=== PATIENT | female | born 1965 | race Caucasian/White ===

== ENCOUNTER → 2018-02-21 16:59 | Outpatient (CLI) | payer OTHER, SELFPAY ==
[2018-02-21 19:06] LABS: Free T4, Direct Thyroxine 1.45 ng/dL (0.78-2.19)
[2018-02-21 19:19] LABS: Thyroid Stimulating Hormone < 0.02 uIU/mL (0.47-4.68)
== END ==
PROVIDERS: PCP Family Medicine; Visit Provider Family Medicine
DX: E03.9 Hypothyroidism, unspecified (principal)
CPT/HCPCS: 36415; 84439; 84443

== ENCOUNTER 2018-03-14 13:51 | Day surgery (SDC) | payer OTHER, SELFPAY ==
[2018-03-14] VITALS (8 sets, daily range): BP systolic 102–119; BP diastolic 62–70; PULSE 55–73; RESP 13–16; TEMP 36–36.6; O2SAT 97–100; BMI 22.7
[2018-03-14] MEDS: SODIUM CHLORIDE 0.9% 1,000 ML 200 ML IV (14:28)
[2018-03-14] MEDS: MIDAZOLAM 5 MG/5 ML VIAL IV (14:58)
[2018-03-14] MEDS: fentaNYL 250 MCG/5 ML INJ IV (14:58)
--- NOTE | 2018-03-14 15:08 | PM.HP.1 ---
History of Present Illness Date Patient Seen: 03/14/18 Time Patient Seen: 15:08 Chief complaint: colonoscopy 81210 Narrative: Pleasant and healthy 53-year-old lady who presents for her 1st screening colonoscopy. She denies any problems related to the function of her GI tract. She reports she needs colonoscopy as per the bowel maintenance program. Patient History Medical History Varicose veins of both legs with edema (Chronic) Hypothyroidism (02/16/17) Anemia (Chronic ~1990) Anxiety (Chronic) Blood loss (Chronic) Bulging discs (Chronic) Headache (Chronic ~1983) Heavy menstrual period (Chronic ~1999) Irregular menstrual cycle (Chronic ~2017) Migraines (Chronic ~1983) Chicken pox (Resolved) Finger fracture (Resolved) Mumps (Resolved) Surgical History History of breast biopsy (Resolved) History of cryosurgery (Resolved) Family & Social History Family History: Reviewed 03/14/18 by Rebekah Iniguez MD Social History: household members spouse Tobacco & Substance use: Smoking Status Never smoker alcohol intake current Meds Home Medications Medication Instructions Recorded Confirmed Type levothyroxine 50 mcg PO DAILY 03/14/18 03/14/18 History Allergies Allergy/AdvReac Type Severity Reaction Status Date / Time codeine Allergy Mild CHILDHOOD Verified 03/14/18 14:07 Penicillins Allergy Mild CHILDHOOD Verified 03/14/18 14:07 Review of Systems Review of Systems All systems reviewed & are unremarkable except as noted in HPI and below Exam Vital Signs (past 8 hours): - 03/14/18 14:18 Temperature 97.9 F Pulse Rate 73 Respiratory Rate 16 Blood Pressure 119/70 Pulse Oximetry 100 Oxygen Delivery Method Room Air Narrative Exam Narrative: Pleasant well-nourished well-developed lady in no distress HEENT: Normocephalic and atraumatic, pupils equal round reactive to light accommodation with anicteric sclera Lungs: Clear to auscultation bilaterally Heart: Regular rate and rhythm Abdomen: Soft, nontender, active bowel sounds Extremities: Warm and well perfused Assessment & Plan Plan: Assessment/Plan Narrative: Very pleasant 53-year-old lady with her for screening colonoscopy. We discussed risks benefits the patient expressed a desire to have the procedure.
--- NOTE | 2018-03-14 15:39 | PM.OP.1 ---
Operative Date/Time/Diagnoses Date of procedure: 03/14/18 Time of procedure: 15:39 Pre-op diagnosis: Screening Post-op diagnosis: same Procedure & Clinicians Procedure: Screening Same procedure as scheduled: Yes Indications: No prior colonoscopy Surgeon: Rebekah Iniguez Click Yes if Unassisted: Yes Anesthesia Type: Sedation (Versed 8 mg; fentanyl 200 mcg) Operative Notes Findings: 1. Excellent prep 2. No polyps or mass lesions 3. No AV malformations 4. Very very mild diverticulosis limited to the sigmoid region 5. Grade 1 internal hemorrhoids 6. Essentially normal colonoscopy for age Procedure in detail: After obtaining informed consent, the patient was brought to the GI suite and placed in the left lateral decubitus position on the examination table. After placement of appropriate monitors, the patient was given incremental doses of Versed and Fentanyl until an appropriate level of sedation was achieved. A time out was held per SCOAP protocol. A digital rectal examination was performed and did not reveal any masses or obstructing lesions. The colonoscope was gently passed into the patient's anus and the entire colon navigated to the level of the cecum with minimal difficulty. Once in the cecum, the scope was withdrawn being sure to go before and beyond all mucosal folds and prominences and get an excellent examination. The findings are noted above. At the level of the rectal vault, the scope was retroflexed and the internal anal canal was examined. The scope was straightened and air aspirated from the colon. The instrument was removed from the patient's body and the procedure was concluded. The patient was allowed to awaken from sedation without difficulty and taken to the post-anesthesia care unit in good condition. Total sedation time 21 min Total withdrawal time 9 min
== END 2018-03-14 16:40 | disposition home or self-care (01) ==
PROVIDERS: PCP Family Medicine; Visit Provider Surgery
PROC: 0DJD8ZZ Inspection of Lower Intestinal Tract, Via Natural or Artificial Opening Endoscopic (ICD-10-PCS; CPT 45378; principal; 2018-03-14 15:00)
DX: Z12.11 Encounter for screening for malignant neoplasm of colon (principal); K57.30 Diverticulosis of large intestine without perforation or abscess without bleeding; K64.0 First degree hemorrhoids
CPT/HCPCS: 45378; 99152; J2250; J3010

== ENCOUNTER → 2018-04-05 16:47 | Outpatient (CLI) | payer OTHER, SELFPAY ==
[2018-04-05 18:50] LABS: TSH w/ Reflex to FT4 0.06 uIU/mL (0.47-4.68)
[2018-04-05 19:16] LABS: Free T4, Direct Thyroxine 1.05 ng/dL (0.78-2.19)
== END ==
PROVIDERS: PCP Family Medicine; Visit Provider Family Medicine
DX: E03.9 Hypothyroidism, unspecified (principal)
CPT/HCPCS: 36415; 84439; 84443

== ENCOUNTER → 2018-04-15 08:01 | Outpatient (CLI) | payer OTHER, SELFPAY ==
[2018-04-15 08:27] LABS: Bacteria Urine None Seen; RBC Urine None Seen (0-5/HPF); WBC Urine None Seen (0-5/HPF)
[2018-04-15 09:12] LABS: Add Manual Diff / Slide Review NO; Basophils Percent Auto 0.9 % (0-2); Hematocrit 33.6 % (36-46); Hemoglobin 10.5 g/dL (12.0-16.0); Lymphocytes Percent Auto 24.4 % (25-40); Mean Corpuscular HGB Conc 31.3 % (30-36); Mean Corpuscular Hemoglobin 23.6 PG (26-34); Mean Corpuscular Volume 75.3 fL (80-100); Monocytes Percent Auto 7.1 % (3-14); Neutrophils Absolute Auto 3800 /uL (3000-5900); Neutrophils Percent Auto 64.6 % (50-75); Platelet Count 349 X10^3/uL (150-400); Red Blood Cell Count 4.46 X10^6/uL (4.0-5.2); Red Cell Distribution Width 17.9 % (11.6-14.8); White Blood Cell Count 5.8 X10^3/uL (4.5-11.0)
[2018-04-15 09:17] LABS: Alanine Aminotransferase 37 IU/L (9-52); Albumin 4.8 g/dL (3.5-5.0); Albumin Globulin Ratio 1.6 (1.0-2.8); Alkaline Phosphatase 85 U/L (38-126); Aspartate Aminotransferase 23 IU/L (14-36); BUN Creatinine Ratio 12.5 (6-22); Bilirubin Total 0.8 mg/dL (0.2-1.3); Blood Urea Nitrogen 10 mg/dL (7-17); Calcium 9.4 mg/dL (8.4-10.2); Carbon Dioxide 28 mmol/L (22-32); Chloride 104 mmol/L (98-107); Cholesterol 220 mg/dL (140-199); Estimated Glomerular Filt Rate > 60.0 mL/min (>60); Glucose 96 mg/dL (70-100); HDL Cholesterol 74 mg/dL (40-60); HEMOLYSIS < 15 (0-50); LDL Cholesterol Calculated 131 mg/dL (<100); Potassium 4.4 mmol/L (3.4-5.1); Sodium 144 mmol/L (137-145); Total Protein 7.8 g/dL (6.3-8.2); Triglycerides 73 mg/dL (35-150)
[2018-04-15 09:25] LABS: Appearance Urine UA CLEAR; Bilirubin Urine UA NEGATIVE (NEGATIVE); Color Urine UA YELLOW; Glucose Urine UA NEGATIVE (Normal); Ketones Urine UA NEGATIVE (NEGATIVE); Leukocyte Esterase Urine UA NEGATIVE (NEGATIVE); Nitrite Urine UA Negative (Negative); Occult Blood Urine UA NEGATIVE (Negative); Protein Urine UA NEGATIVE (Negative); Specific Gravity Urine UA <=1.005 (1.000-1.035); Urobilinogen Urine UA 0.2 E.U./dL (0.2)
[2018-04-15 09:45] LABS: Culture Indicated Urine Cult Not Indicated; Urine Comments Microscopic Normal
[2018-04-15 09:51] LABS: TSH w/ Reflex to FT4 0.04 uIU/mL (0.47-4.68)
[2018-04-15 10:18] LABS: Free T4, Direct Thyroxine 1.16 ng/dL (0.78-2.19)
== END ==
PROVIDERS: PCP Family Medicine; Visit Provider Nurse Practitioner Family
DX: Z00.00 Encounter for general adult medical examination without abnormal findings (principal); E03.9 Hypothyroidism, unspecified
CPT/HCPCS: 36415; 80053; 80061; 81001; 84439; 84443; 85025

== ENCOUNTER 2018-04-16 14:33 | Emergency (ER) | payer OTHER, SELFPAY ==
[2018-04-16] VITALS (7 sets, daily range): BP systolic 117–142; BP diastolic 54–81; PULSE 64–76; RESP 16–19; TEMP 36.1; O2SAT 97–100
--- NOTE | 2018-04-16 15:05 | DI.RAD.S_ITS ---
PROCEDURE: XR CHEST 1V INDICATIONS: chest pain TECHNIQUE: One view of the chest was acquired. COMPARISON: None. FINDINGS: Surgical changes and devices: None. Lungs and pleura: No pleural effusions or pneumothorax. Lungs are clear. Mediastinum: Mediastinal contours appear normal. Heart size is normal. Bones and chest wall: No suspicious bony lesions. Overlying soft tissues appear unremarkable. IMPRESSION: Normal. Dictated by: Lloyd Lang M.D. on 04/16/2018 at 16:27 Approved by: Lloyd Lang M.D. on 04/16/2018 at 16:27
--- NOTE | 2018-04-16 15:08 | ED_ITS ---
HPI - Chest Pain General Chief Complaint: Chest Pain Stated Complaint: CHEST PAIN Time Seen by Provider: 04/16/18 15:08 Source: patient Mode of arrival: ambulatory Limitations: no limitations History of Present Illness HPI narrative: Patient is a 53-year-old female with a history of hyper bow thyroidism here for evaluation of chest pain. Patient states that approximately 1 week ago she had retrosternal chest pressure that lasted less than 10 min. She states she was symptom free. Had a regular scheduled follow-up appointment with the primary doctor later that week to discuss her thyroid issues. She did not discuss the chest pain at the time. Patient then states that approximately 12-13 hours ago she had a return of the chest symptoms. She states that it woke her from sleep. She states that has improved somewhat however she has had some level of symptoms for the past 12-13 hours. No shortness of breath. No change in the symptoms with palpation or movement. No change in the symptoms with eating. States she did have right arm pain at the time but not currently. Does have some posterior neck pain which he states is not new. Related Data Previous Rx's Medication Instructions Recorded levothyroxine 75 mcg capsule 37.5 mcg PO DAILY #30 cap 03/27/18 Allergies Allergy/AdvReac Type Severity Reaction Status Date / Time codeine Allergy Mild CHILDHOOD Verified 04/11/18 13:23 Penicillins Allergy Mild CHILDHOOD Verified 04/11/18 13:23 Review of Systems Constitutional Denies fatigue and Denies fever(s) ENT Ears, Nose, Mouth, and Throat: Denies vertigo Cardiovascular Reports chest pain, Denies chest pain with activity, Denies edema, Denies irregular heart rhythm, Denies radiating jaw, neck or arm pain, Denies palpitations, Denies dyspnea and Denies dyspnea on exertion Respiratory Denies cough, Denies dyspnea and Denies dyspnea on exertion Gastrointestinal Gastrointestinal: Denies abdominal pain, Denies diarrhea, Denies nausea and Denies vomiting Genitourinary Denies dysuria Musculoskeletal Denies myalgias and Denies arthralgias Integumentary/Breasts Denies lesions and Denies rash Neurologic Denies behavioral changes, Denies confusion and Denies vertigo Psychiatric Denies behavioral changes and Denies confusion Endocrine Denies fatigue and Denies palpitations Hematologic/Lymphatic Denies easy bleeding and Denies easy bruising [facility] Medical History Varicose veins of both legs with edema (Chronic) Hypothyroidism (02/16/17) Anemia (Chronic ~1990) Anxiety (Chronic) Blood loss (Chronic) Bulging discs (Chronic) Headache (Chronic ~1983) Heavy menstrual period (Chronic ~1999) Irregular menstrual cycle (Chronic ~2017) Migraines (Chronic ~1983) Chicken pox (Resolved) Finger fracture (Resolved) Mumps (Resolved) Surgical History History of breast biopsy (Resolved) History of cryosurgery (Resolved) Family History Brother Age: 62 High cholesterol Father Age: 83 High cholesterol Skin cancer Mother Age: 83 Hypertension Skin cancer Brother Mental health disorder Social History household members: spouse Smoking Status: Never smoker alcohol intake: current (rare) substance use type: does not use Exam Initial Vital Signs Initial Vital Signs: Vital Signs Temperature 97.0 F L 04/16/18 14:40 Pulse Rate 67 04/16/18 14:40 Respiratory Rate 18 04/16/18 14:40 Blood Pressure 138/81 04/16/18 14:40 Pulse Oximetry 100 04/16/18 14:40 Const General: cooperative, healthy appearing, comfortable, well developed, well groomed and No acute distress Orientation: alert, awake and oriented x3 HENMT Head: normal to inspection and normocephalic Resp Effort & Inspection: normal respiratory effort Auscultation: clear to auscultation bilaterally Cardio Rate: regular rate and not tachycardic Rhythm: regular rhythm Heart Sounds: no rubs Pulses: radial pulses present GI Inspection: normal to inspection and non-distended Palpation: soft, No firm and No tender Skin Lesions: no lesions Rashes: no rashes Neuro General: alert, awake and oriented x3 Cognition: normal cognition Speech: speech normal Gait: normal gait Motor: muscle tone normal throughout Sensory Exam: no sensory deficits noted Extrem General: normal to inspection and capillary refill normal Psych Appearance: grossly normal and well kempt Scores HEART Score Heart Score history: Slightly Suspicious Heart Score EKG: Normal Heart Score Age: 45-64 years old Heart Score risk factors: 1-2 risk factors Heart Score troponin: < or = to normal limit Heart Score Total: 2 Course Orders Ordered: ED Orders 04/16/18 14:38 EKG-12 Lead Stat 04/16/18 15:05 XR chest 1V Stat 04/16/18 15:14 Complete Blood Count AUTO DIFF Stat Comprehensive Metabolic Panel Stat Lipase Stat Partial Thromboplastin Time Stat Prothrombin Time INR Stat Troponin & CK Cardiac Panel Stat Vital Signs - 8 hr 04/16/18 14:40 04/16/18 15:16 04/16/18 15:30 Temperature 97.0 F L Pulse Rate 67 74 67 Respiratory Rate 18 18 17 Blood Pressure 138/81 Blood Pressure [Right Arm] 133/73 142/80 H Pulse Oximetry 100 98 100 04/16/18 16:00 04/16/18 16:35 Temperature Pulse Rate 76 65 Respiratory Rate 19 Blood Pressure Blood Pressure [Right Arm] 137/77 117/54 L Pulse Oximetry 99 99 MDM - Chest Pain Lab Data Attestation: I reviewed the patient's lab results. Result diagrams: 04/16/18 15:14 04/16/18 15:14 Lab Results 04/16/18 04/16/18 04/16/18 Range/Units 15:14 15:14 15:14 WBC 7.7 (4.5-11.0) X10^3/uL RBC 4.23 (4.0-5.2) X10^6/uL Hgb 10.0 L (12.0-16.0) g/dL Hct 31.5 L (36-46) % MCV 74.3 L (80-100) fL MCH 23.6 L (26-34) PG MCHC 31.8 (30-36) % RDW 18.0 H (11.6-14.8) % Plt Count 322 (150-400) X10^3/uL Neut % (Auto) 67.1 (50-75) % Lymph % (Auto) 25.0 (25-40) % [place] % (Auto) 5.9 (3-14) % Eos % (Auto) 1.1 L (2-4) % Baso % (Auto) 0.9 (0-2) % Neut # (Auto) 5100 (5037-4793) /uL PT 12.7 (10.1-12.7) SECONDS INR 1.2 (0.9-1.3) APTT 26 L (26.4-36.2) SECONDS Sodium 143 (137-145) mmol/L Potassium 4.0 (3.4-5.1) mmol/L Chloride 107 (98-107) mmol/L Carbon Dioxide 25 (22-32) mmol/L BUN 13 (7-17) mg/dL Creatinine 0.70 (0.52-1.04) mg/dL Estimated GFR > 60.0 (>60) mL/min BUN/Creatinine Ratio 18.6 (6-22) Glucose 90 (70-100) mg/dL Calcium 9.2 (8.4-10.2) mg/dL Total Bilirubin 0.4 (0.2-1.3) mg/dL AST 22 (14-36) IU/L ALT 35 (9-52) IU/L Alkaline Phosphatase 82 (38-126) U/L Total Creatine Kinase 41 (30-135) U/L Troponin I < 0.012 (0.01-0.034) ng/mL Total Protein 7.5 (6.3-8.2) g/dL Albumin 4.6 (3.5-5.0) g/dL Globulin 2.9 (1.7-4.1) g/dL Albumin/Globulin Ratio 1.6 (1.0-2.8) Lipase 74 (23-300) U/L Imaging Data Chest x-ray: Radiologist's impression: [address] [address] XRay Report Signed Patient: Ruby Valdez [facility]#: [id number] : 1965Acct:[id number] Age/Sex: 53 / FDate of Service: 04/16/18 Loc: ED Accession Number: [id number] Procedure: XR chest 1V Ordering Provider: Nikko Schilling D.O. PROCEDURE: XR CHEST 1V INDICATIONS: chest pain TECHNIQUE: One view of the chest was acquired. COMPARISON: None. FINDINGS: Surgical changes and devices: None. Lungs and pleura: No pleural effusions or pneumothorax. Lungs are clear. Mediastinum: Mediastinal contours appear normal. Heart size is normal. Bones and chest wall: No suspicious bony lesions. Overlying soft tissues appear unremarkable. IMPRESSION: Normal. Dictated by: Lloyd Lang M.D. on 04/16/2018 at 16:27 Approved by: Lloyd Lang M.D. on 04/16/2018 at 16:27 ECG Data Attestation: I personally reviewed and interpreted this ECG as follows: Prior ECG tracings: not available for review Interpretation: Sinus rhythm Ventricular rate is 66 Normal axis Normal intervals Normal QRS Normal QTC No ST T wave changes MDM Narrative Medical decision making narrative: Patient has had consistent symptoms for 12- 13 hours. Troponin negative. EKG unremarkable. Heart score of 2. Patient's physical exam is not consistent with pericarditis. No signs of pneumonia on the chest x-ray. Do not suspect PE. Had a long discussion with the patient and her family and friends at bedside regarding her thyroid issues. Her TSH was drawn yesterday by her primary doctor and it was low. She states that approximately 1 month ago her Synthroid was decreased. She states that since then she has had many symptoms and has not felt very well. She states she was feeling very well on the level of Synthroid that she was at prior to the decreased. I suspect that this level is decreased secondary to her TSH being low at that time in the concern for her taking too much of the hormone replacement. We also had a long discussion regarding her chest pain. She is low risk for ACS. Will hold on further workup for now. We did discuss that no one is at 0 risk for ACS and that she did need to contact her primary care doctor for follow-up and to discuss further evaluation. We did discuss return precautions. She expressed understanding and agreement with plan. Discharge Plan Departure Patient Disposition: Home Clinical Impression: Atypical chest pain, Hypothyroidism Instructions: DI for Atypical Chest Pain Activity Restrictions/Additional Instructions: Unfortunately we did not come up with a specific etiology for the chest pain that you are having. I feel that given your labs that were drawn today, your EKG, in your risk factors that you are low risk for the cause of her chest pain being a heart attack. Despite this I do feel that you need to follow up with her primary doctor to discuss the indications for further evaluation and treatment. I also suggest that you did discuss your thyroid issues with your primary doctor like we discussed here in the ER. Return to the emergency department for any new or worsening symptoms Prescriptions: No Action levothyroxine 75 mcg capsule 37.5 mcg PO DAILY Qty: 30 RF: 0
[2018-04-16 15:26] LABS: Add Manual Diff / Slide Review NO; Basophils Percent Auto 0.9 % (0-2); Eosinophils Percent Auto 1.1 % (2-4); Hematocrit 31.5 % (36-46); Mean Corpuscular HGB Conc 31.8 % (30-36); Mean Corpuscular Hemoglobin 23.6 PG (26-34); Mean Corpuscular Volume 74.3 fL (80-100); Monocytes Percent Auto 5.9 % (3-14); Neutrophils Absolute Auto 5100 /uL (3000-5900); Neutrophils Percent Auto 67.1 % (50-75); Platelet Count 322 X10^3/uL (150-400); Red Blood Cell Count 4.23 X10^6/uL (4.0-5.2); White Blood Cell Count 7.7 X10^3/uL (4.5-11.0)
[2018-04-16 15:28] LABS: INR 1.2 (0.9-1.3); Prothrombin Time 12.7 SECONDS (10.1-12.7)
[2018-04-16 15:30] LABS: PTT Partial Thromboplastin Tim 26 SECONDS (26.4-36.2)
[2018-04-16 15:32] LABS: Alanine Aminotransferase 35 IU/L (9-52); Albumin 4.6 g/dL (3.5-5.0); Albumin Globulin Ratio 1.6 (1.0-2.8); Alkaline Phosphatase 82 U/L (38-126); Aspartate Aminotransferase 22 IU/L (14-36); BUN Creatinine Ratio 18.6 (6-22); Bilirubin Total 0.4 mg/dL (0.2-1.3); Blood Urea Nitrogen 13 mg/dL (7-17); Calcium 9.2 mg/dL (8.4-10.2); Carbon Dioxide 25 mmol/L (22-32); Chloride 107 mmol/L (98-107); Creatine Kinase 41 U/L (30-135); Estimated Glomerular Filt Rate > 60.0 mL/min (>60); Globulin 2.9 g/dL (1.7-4.1); Glucose 90 mg/dL (70-100); HEMOLYSIS < 15 (0-50); Lipase 74 U/L (23-300); Sodium 143 mmol/L (137-145); Total Protein 7.5 g/dL (6.3-8.2)
[2018-04-16 15:44] LABS: Troponin I < 0.012 ng/mL (0.01-0.034)
== END 2018-04-16 17:57 | disposition home or self-care (01) ==
PROVIDERS: Emergency Provider Emergency Medicine; PCP Family Medicine
DX: E03.9 Hypothyroidism, unspecified (principal); R07.89 Other chest pain
CPT/HCPCS: 36591; 71045; 80053; 82550; 82553; 83690; 84484; 85025; 85610; 85730; 93005; 93010; 99283; 99285

== ENCOUNTER → 2018-10-16 14:58 | Outpatient (CLI) | payer OTHER, SELFPAY ==
--- NOTE | 2018-10-16 | DI.US.S_ITS ---
PROCEDURE: US ABDOMEN COMPLETE INDICATIONS: UPPER ABDOMINAL PAIN TECHNIQUE: Real-time scanning was performed of the abdominal and retroperitoneal organs, with image documentation. COMPARISON: [facility], CT, ABDOMEN/PELVIS WITH CONTRAST, 02/12/2008, 7:30. FINDINGS: Liver: Liver is normal in size and homogeneous in echotexture. Gallbladder: Unremarkable. Borderline gallbladder wall thickening. No pericholecystic fluid or sonographic Cornejo sign Biliary ducts: Intrahepatic bile ducts are non-dilated. Extrahepatic bile duct caliber measures 3 mm. Normal is 6-7 mm or less in diameter, or 10 mm or less post-cholecystectomy. Pancreas: Hypoechoic focus seen in the pancreatic body measuring 1.3 x 0.8 x 0.9 cm, nonspecific. Spleen: Spleen is normal in size and homogeneous in echotexture. Kidneys: Kidneys are normal in size and echotexture. Right kidney measures 9.5 cm long; left kidney measures 10.5 cm long. No hydronephrosis or nephrolithiasis. No solid masses. Aorta: Visualized aorta is normal in caliber at less than 3 cm. Iliacs: Proximal common iliac arteries are normal in caliber at less than 2.5 cm. IVC: Intrahepatic inferior vena cava is patent. Miscellaneous: No free abdominal fluid. IMPRESSION: Nonspecific 1.3 cm hypoechoic focus seen within the pancreatic body, indeterminate although recommend further evaluation with contrast-enhanced pancreatic protocol CT or MRI to exclude the possibility of neoplasm. Dictated by: Reid Trejo M.D. on 10/17/2018 at 11:12 Approved by: Reid Trejo M.D. on 10/17/2018 at 11:16
--- NOTE | 2018-10-16 15:01 | DI.US.S_ITS ---
PROCEDURE: US PELVIC COMPLETE INDICATIONS: posible mass on cervix TECHNIQUE: Real-time scanning was performed of the pelvic organs, with image documentation. Additional endovaginal scanning was necessary due to incomplete visualization of the adnexal and endometrial structures by transabdominal scanning. COMPARISON: None. FINDINGS: Transabdominal scanning: Limited scanning through the kidneys shows no hydronephrosis. No pathologic free abdominal or pelvic fluid. Endovaginal scanning: Uterus: Uterus is normal in size at 8.2 x 4.2 x 5.8 cm. The endometrium measures 9 mm in combined thickness. Presumed nabothian cysts measuring up to 8mm, technically non-specific. No discrete solid lesion identified sonographically. Ovaries: The right ovary not sonographically visualized. Left ovary measures 2.2 x 1.4 1.6 cm. 1.7 x 1.2 x 1.8 cm cystic lesion only visualized transabdominally due to body habitus. No definite mural nodularity or discrete septation. IMPRESSION: Nonspecific poorly defined cystic lesion involving the left ovary (seen transabdominally only) as above. Recommend followup with one year repeat pelvic ultrasound per consensus guidelines. Right ovary not sonographically visualized. Presumed nabothian cysts. Dictated by: Reid Trejo M.D. on 10/17/2018 at 11:07 Approved by: Reid Trejo M.D. on 10/17/2018 at 11:12
== END ==
PROVIDERS: Family Provider Naturopath; PCP Family Medicine; Visit Provider Family Medicine
DX: N88.8 Other specified noninflammatory disorders of cervix uteri (principal); R10.10 Upper abdominal pain, unspecified
CPT/HCPCS: 76700; 76830; 76856

== ENCOUNTER → 2018-10-20 14:20 | Outpatient (CLI) | payer OTHER, SELFPAY ==
--- NOTE | 2018-10-20 14:22 | DI.CT.S_ITS ---
PROCEDURE: CT ABDOMEN WO/W CON INDICATIONS: abdominal pain compare to prior, per imaging results. TECHNIQUE: Noncontrast 3 mm thick sections acquired through the pancreas. After the administration of intravenous contrast, 3 mm thick pancreatic-phase images acquired from the diaphragm to the iliac crests. 3 mm thick coronal and sagittal reformats were performed. For radiation dose reduction, the following was used: automated exposure control, adjustment of mA and/or kV according to patient size. COMPARISON: [facility], US, US ABDOMEN COMPLETE, 10/16/2018, 16:00. FINDINGS: Image quality: Excellent. Lung bases: Lung bases are clear. Heart size is normal. There is a small hiatal hernia. Pancreas: No pancreatic mass is identified in the area of pancreatic body to correlate with the 1.3 cm hypoechoic focus seen on ultrasound. Pancreas is normal in size and morphology with uniform enhancement. No pancreatic duct dilation or pancreatic calcification. No peripancreatic stranding or pseudocysts. Other solid organs: There is diffuse hepatic fatty infiltration. Liver is normal in size and enhancement. Gallbladder is normal. Biliary system is non dilated. Spleen is normal in size and enhancement. No adrenal nodules. Kidneys are normal in size and enhancement, without hydronephrosis. Peritoneum and bowel: Unenhanced bowel loops demonstrate normal wall thickness and caliber. No free fluid or air. Nodes and vessels: No retroperitoneal or mesenteric adenopathy by size criteria. Aorta and inferior vena cava are normal in size. Bones: No suspicious bony lesions. No vertebral body compression fractures. Miscellaneous: There is a tiny fat-containing umbilical hernia. IMPRESSION: 1. No mass is seen to correlate with the ultrasound finding of a 1.3 cm hypoechoic nodule. There is normal CT appearance the pancreas. 2. Mild hepatic steatosis. 3. Small hiatal hernia. Dictated by: Romina Beard M.D. on 10/20/2018 at 16:42 Approved by: Romina Beard M.D. on 10/20/2018 at 17:23
== END ==
PROVIDERS: Family Provider Naturopath; PCP Family Medicine; Visit Provider Nurse Practitioner
DX: R10.9 Unspecified abdominal pain (principal); K76.0 Fatty (change of) liver, not elsewhere classified; K44.9 Diaphragmatic hernia without obstruction or gangrene
CPT/HCPCS: 74178; Q9967

== ENCOUNTER 2018-11-13 20:41 | Emergency (ER) | payer OTHER, SELFPAY ==
[2018-11-13 20:45] VITALS: BP 129/71; PULSE 58; RESP 16; TEMP 36.8; O2SAT 100; BMI 19.3
--- NOTE | 2018-11-13 20:51 | DI.RAD.S_ITS ---
PROCEDURE: XR CHEST 1V INDICATIONS: Chest pain TECHNIQUE: One view of the chest was acquired. COMPARISON: [facility], CR, XR CHEST 1V, 04/16/2018, 15:33. FINDINGS: Surgical changes and devices: None. Lungs and pleura: Lungs are clear. No pleural effusions or pneumothorax. Mediastinum: Mediastinal contours appear normal. Heart size is normal. Bones and chest wall: No suspicious bony lesions. Overlying soft tissues appear unremarkable. IMPRESSION: No evidence acute pulmonary process. Dictated by: Mina Roth M.D. on 11/13/2018 at 21:21 Approved by: Mina Roth M.D. on 11/13/2018 at 21:22
[2018-11-13 21:11] LABS: Add Manual Diff / Slide Review NO; Basophils Absolute Auto 100 /uL (0-100); Eosinophils Absolute Auto 100 /uL (0-450); Eosinophils Percent Auto 1.9 % (2-4); Hemoglobin 11.8 g/dL (12.0-16.0); Lymphocytes Absolute Auto 2000 /uL (1100-4500); Lymphocytes Percent Auto 31.1 % (25-40); Mean Corpuscular HGB Conc 32.8 % (30-36); Mean Corpuscular Hemoglobin 30.9 PG (26-34); Monocytes Absolute Auto 500 /uL (0-900); Monocytes Percent Auto 7.7 % (3-14); Neutrophils Absolute Auto 3700 /uL (1500-7000); Neutrophils Percent Auto 58.3 % (50-75); Platelet Count 245 X10^3/uL (150-400); Red Blood Cell Count 3.83 X10^6/uL (4.0-5.2); Red Cell Distribution Width 13.2 % (11.6-14.8); White Blood Cell Count 6.4 X10^3/uL (4.5-11.0)
[2018-11-13 21:29] LABS: Alanine Aminotransferase 23 IU/L (9-52); Albumin 4.3 g/dL (3.5-5.0); Albumin Globulin Ratio 1.5 (1.0-2.8); Alkaline Phosphatase 58 U/L (38-126); Aspartate Aminotransferase 15 IU/L (14-36); Bilirubin Total 0.4 mg/dL (0.2-1.3); Blood Urea Nitrogen 20 mg/dL (7-17); Calcium 9.1 mg/dL (8.4-10.2); Carbon Dioxide 24 mmol/L (22-32); Chloride 105 mmol/L (98-107); Creatine Kinase 24 U/L (30-135); Estimated Glomerular Filt Rate 57.8 mL/min (>60); Globulin 2.8 g/dL (1.7-4.1); Glucose 94 mg/dL (70-100); HEMOLYSIS < 15 (0-50); Lipase 85 U/L (23-300); Sodium 139 mmol/L (137-145); Total Protein 7.1 g/dL (6.3-8.2)
[2018-11-13] MEDS: ASPIRIN 81 MG TAB 324 MG PO (21:34)
[2018-11-13] MEDS: SODIUM CHLORIDE 0.9% 1,000 ML 150 ML IV (21:34)
[2018-11-13 21:39] LABS: Troponin I < 0.012 ng/mL (0.01-0.034)
--- NOTE | 2018-11-13 22:01 | ED_ITS ---
HPI - Chest Pain General Chief Complaint: Chest Pain Stated Complaint: chest Px Time Seen by Provider: 11/13/18 20:55 Source: patient and family Mode of arrival: ambulatory Limitations: no limitations History of Present Illness HPI narrative: 53-year-old female nonsmoker with suspected history of Sjogren's presents with 7 day history episodic chest pressure. She denies associated symptoms such as dizziness, weakness or lightheadedness. She is occasionally short of breath. she has a very remote history of pericarditis but states this feels much different. She denies provocation with deep breath or bleeding forward. She denies any hemoptysis, recent travel or history of blood clot. MD complaint: chest pain Onset (ago): day(s) Duration: constant Pain location: substernal Severity: moderate Quality: tightness Pain radiation: none Relieving factors: nothing Exacerbating factors: nothing Treatments prior to arrival chest pain: none Related Data On Oral Contraceptives: No Previous Rx's Medication Instructions Recorded levothyroxine 75 mcg capsule 37.5 mcg PO DAILY #30 cap 05/15/18 Allergies Allergy/AdvReac Type Severity Reaction Status Date / Time codeine Allergy Mild CHILDHOOD Verified 10/23/18 14:01 Penicillins Allergy Mild CHILDHOOD Verified 10/23/18 14:01 Review of Systems Constitutional Denies chills, Denies fever(s), Denies lethargy and Denies weakness Eyes Denies change in vision, Denies eye discharge, Denies irritation and Denies loss of vision ENT Ears, Nose, Mouth, and Throat: Denies change in voice, Denies neck pain and Denies sore throat Cardiovascular Reports chest pain, Denies irregular heart rhythm, Denies lightheadedness, Denies palpitations, Denies dyspnea, Denies dyspnea on exertion and Denies orthopnea Respiratory Denies cough, Denies dyspnea, Denies dyspnea on exertion and Denies wheezing Gastrointestinal Gastrointestinal: Denies abdominal pain, Denies change in bowel habits, Denies diarrhea, Denies nausea and Denies vomiting Genitourinary Denies hematuria, Denies flank pain, Denies urinary incontinence and Denies urinary urgency Musculoskeletal Denies neck pain Integumentary/Breasts Denies pruritus, Denies erythema, Denies rash and Denies wounds Neurologic Denies confusion, Denies loss of vision and Denies weakness Psychiatric Denies anxiety, Denies confusion, Denies depression, Denies homicidal ideation and Denies suicidal ideation Endocrine Denies palpitations Hematologic/Lymphatic Denies easy bruising Allergic/Immunologic Denies wheezing PFSH Social History household members: spouse Smoking Status: Never smoker alcohol intake: current substance use type: does not use Exam Narrative Exam Narrative: GENERAL: This is a well-nourished, well-developed patient, in mild distress. HEAD: Atraumatic. Normocephalic. No temporal or scalp tenderness. EYES: Pupils equal round and reactive. Extraocular motions intact. No scleral icterus. No injection or drainage. ENT: Nose without bleeding, purulent drainage or septal hematoma. Throat without erythema, tonsillar hypertrophy or exudate. Uvula midline. Airway patent. NECK: Trachea midline. No JVD or lymphadenopathy. Supple, nontender, no meningeal signs. CARDIOVASCULAR: Regular rate and rhythm without murmurs, gallops, or rubs. RESPIRATORY: Clear to auscultation. Breath sounds equal bilaterally. No wheezes, rales, or rhonchi. GASTROINTESTINAL: Abdomen soft, non-tender, nondistended. No hepato- splenomegaly, or palpable masses. No guarding. EXTREMITIES: No clubbing, cyanosis, or edema. No joint tenderness, effusion, or edema noted. BACK: Nontender without deformity or crepitance. No flank tenderness. NEURO: AOx3. SKIN: No rash or erythema. Initial Vital Signs Initial Vital Signs: Vital Signs Temperature 98.3 F 11/13/18 20:45 Pulse Rate 58 L 11/13/18 20:45 Respiratory Rate 16 11/13/18 20:45 Blood Pressure 129/71 11/13/18 20:45 Pulse Oximetry 100 11/13/18 20:45 Course Orders Ordered: Discontinued Medications Aspirin (Aspirin Chew) 324 mg PO NOW ONE Stop: 11/13/18 20:51 Last Admin: 11/13/18 21:34 Dose: 324 mg Sodium Chloride (Normal Saline 0.9%) 1,000 mls @ 150 mls/hr IV CONT ALTAF Last Infusion: 11/13/18 23:01 Dose: 0 mls/hr Admin: 11/13/18 21:34 Dose: 150 mls/hr Vital Signs - 8 hr 11/13/18 20:45 Temperature 98.3 F Pulse Rate 58 L Respiratory Rate 16 Blood Pressure 129/71 Pulse Oximetry 100 MDM - Chest Pain Lab Data Result diagrams: 11/13/18 21:05 11/13/18 21:05 Lab Results 11/13/18 11/13/18 11/13/18 Range/Units 21:05 21:05 21:50 WBC 6.4 (4.5-11.0) X10^3/uL RBC 3.83 L (4.0-5.2) X10^6/uL Hgb 11.8 L (12.0-16.0) g/dL Hct 36.0 (36-46) % MCV 94.0 (80-100) fL MCH 30.9 (26-34) PG MCHC 32.8 (30-36) % RDW 13.2 (11.6-14.8) % Plt Count 245 (150-400) X10^3/uL Neut % (Auto) 58.3 (50-75) % Lymph % (Auto) 31.1 (25-40) % [place] % (Auto) 7.7 (3-14) % Eos % (Auto) 1.9 L (2-4) % Baso % (Auto) 1.0 (0-2) % Neut # (Auto) 3700 (4662-4063) /uL Lymph # (Auto) 2000 (3292-8948) /uL [place] # (Auto) 500 (0-900) /uL Eos # (Auto) 100 (0-450) /uL Baso # (Auto) 100 (0-100) /uL Sodium 139 (137-145) mmol/L Potassium 4.0 (3.4-5.1) mmol/L Chloride 105 (98-107) mmol/L Carbon Dioxide 24 (22-32) mmol/L BUN 20 H (7-17) mg/dL Creatinine 1.00 (0.52-1.04) mg/dL Estimated GFR 57.8 L (>60) mL/min BUN/Creatinine Ratio 20.0 (6-22) Glucose 94 (70-100) mg/dL Calcium 9.1 (8.4-10.2) mg/dL Total Bilirubin 0.4 (0.2-1.3) mg/dL AST 15 (14-36) IU/L ALT 23 (9-52) IU/L Alkaline Phosphatase 58 (38-126) U/L Total Creatine Kinase 24 L (30-135) U/L CK-MB (CK-2) TNP CK-MB (CK-2) Rel Index TNP Troponin I < 0.012 (0.01-0.034) ng/mL Total Protein 7.1 (6.3-8.2) g/dL Albumin 4.3 (3.5-5.0) g/dL Globulin 2.8 (1.7-4.1) g/dL Albumin/Globulin Ratio 1.5 (1.0-2.8) Lipase 85 (23-300) U/L Urine RBC 0-1/hpf (0-5/HPF) Urine WBC None seen (0-5/HPF) Ur Squamous Epith Cells 0-1 /hpf (0-5/HPF) Urine Bacteria None seen (None) Ur Culture Indicated? Cult not indicated Urine Dip Bedside Urine Glucose Negative Bedside Urine Bilirubin - Negative Bedside Urine Ketone - Negative Urine Specific [place] 1.010 Bedside Urine Occult Blood +/- Bedside Urine pH 7.5 Bedside Urine Protein - Negative Bedside Urine Urobilinogen +/- 1mg Bedside Urine Nitrite - Negative Bedside Urine Leukocytes - Negative Esterase MDM Narrative Medical decision making narrative: Multiple etiologies for patient's symptoms c onsidered including: [Pulmonary embolism versus pneumonia versus a pericarditis versus other] Patient's symptoms improved or duration of stay with above-stated therapies. Findings and discharge diagnosis discussed with patient/family followed by verbalization of understanding Return precautions discussed with patient/family whom verbalize understanding. Discharge Plan Departure Patient Disposition: Home Clinical Impression: Chest tightness or pressure, Atypical chest pain Discharge Date/Time: 11/13/18 23:02 Interventions: ED Discharge Assessment Last Done: 11/13/18 23:01 Instructions: DI for Atypical Chest Pain Prescriptions: No Action levothyroxine 75 mcg capsule 37.5 mcg PO DAILY Qty: 30 RF: 0 Referrals: Denisse Cano DO [Primary Care Provider] -
[2018-11-13 22:04] VITALS: BP 123/64; PULSE 59; RESP 20; O2SAT 98
[2018-11-13 22:10] LABS: Bacteria Urine None Seen; WBC Urine None Seen (0-5/HPF)
[2018-11-13 22:24] LABS: Culture Indicated Urine Cult Not Indicated; RBC Urine 0-1/HPF (0-5/HPF); Squamous Epithelial Cell Urine 0-1 /HPF (0-5/HPF)
[2018-11-13 22:30] VITALS: BP 123/63; PULSE 49; RESP 20; O2SAT 100
== END 2018-11-13 23:02 | disposition home or self-care (01) ==
PROVIDERS: Emergency Provider Emergency Medicine; Family Provider Naturopath; PCP Family Medicine
DX: R07.89 Other chest pain (principal); R06.02 Shortness of breath
CPT/HCPCS: 36591; 71045; 80053; 81003; 81015; 82550; 83690; 84484; 85025; 93005; 93010; 96360; 99283; 99284

== ENCOUNTER → 2018-12-18 06:12 | Outpatient (CLI) | payer OTHER, SELFPAY ==
--- NOTE | 2018-12-18 | DI.MRI.S_ITS ---
PROCEDURE: MR THORACIC SPINE WO/W CON INDICATIONS: PARESTHESIA OF SKIN/MUSCLE TECHNIQUE: Noncontrast sagittal T1 spin echo and T2 fast spin echo, sagittal STIR, axial T1 and T2 fast spin echo through the thoracic spine. After the administration of contrast, axial and sagittal T1 spin echo with fat saturation through the thoracic spine. COMPARISON: [facility], CR, XR CHEST 1V, 11/13/2018, 21:01. [facility], MR, MR CERVICAL SPINE WO/W CON, 12/18/2018, 7:15. [facility], MR, MR HEAD/BRAIN WO/W CON, 12/18/2018, 6:53. FINDINGS: Image quality: Diagnostic Alignment and curvature: There is normal bony alignment. Marrow: Marrow is of normal overall signal. Scattered foci are seen, which are hyperintense on T1-weighted and T2-weighted imaging, which are most consistent with benign vertebral body hemangiomas. No acute vertebral body compression fractures. Spinal cord: Visualized spinal cord is of normal signal and size, without abnormal enhancement. Paraspinous soft tissues: No paravertebral masses or abnormal enhancement. Miscellaneous: Central canal and foramina appear widely patent at all scanned levels. IMPRESSION: Normal thoracic spine MRI. No white matter lesions are seen. No significant neural foraminal or central canal narrowing can be seen throughout. No abnormal enhancement. Dictated by: Sai Quinones M.D. on 12/18/2018 at 8:28 Approved by: Sai Quinones M.D. on 12/18/2018 at 8:30
--- NOTE | 2018-12-18 | DI.MRI.S_ITS ---
PROCEDURE: MR CERVICAL SPINE WO/W CON INDICATIONS: PARESTHESIA OF SKIN/MUSCLE TECHNIQUE: Noncontrast sagittal T1 spin echo and T2 fast spin echo, sagittal STIR, sagittal PD fast spin echo, foraminal oblique sagittal T2 fast spin echo, axial gradient echo or T2 fast spin echo through the cervical spine. After the administration of contrast, sagittal and axial T1 spin echo with fat saturation through the cervical spine. COMPARISON: None. FINDINGS: Image quality: Excellent. Alignment and curvature: There is normal bony alignment. Marrow: Marrow demonstrates normal overall signal. Spinal cord: Visualized spinal cord is normal in size, without white matter lesions. No suspicious intramedullary enhancement. No cerebellar tonsillar herniation. Paraspinous soft tissues: No paravertebral masses or suspicious enhancement. C2-C3: Normal appearance. C3-C4: Normal appearance. C4-C5: No significant abnormality is seen. C5-C6: Mild to moderate loss of disc height and disc signal can be seen. Moderate disc is a complex is seen, which is eccentric to the left. There is a left foraminal/left lateral disc osteophyte protrusion seen. There is moderate to severe left-sided and no right-sided neural foraminal narrowing seen. Minimal central canal narrowing is seen. C6-C7: Mild to moderate loss of disc height and disc signal are seen. Mild to moderate disc osteophyte complex is seen, which is eccentric to the left. There is moderate left-sided neural foraminal narrowing. No right-sided neural foraminal narrowing is seen. Mild central canal narrowing is seen. C7-T1: Normal appearance. IMPRESSION: Lower cervical spine degenerative changes are seen, which are more prominent on the left side. No suspicious white matter lesions are seen. No abnormal enhancement. Dictated by: Sai Quinones M.D. on 12/18/2018 at 8:30 Approved by: Sai Quinones M.D. on 12/18/2018 at 8:33
--- NOTE | 2018-12-18 | DI.MRI.S_ITS ---
PROCEDURE: MR HEAD/BRAIN WO/W CON INDICATIONS: PARESTHESIA OF SKIN/MUSCLE TECHNIQUE: Noncontrast sagittal and axial FLAIR, axial and coronal T2 fast spin echo, axial VIBE, axial gradient echo, axial diffusion and ADC through the brain. After the administration of contrast, axial and coronal VIBE with fat saturation through the brain. COMPARISON: [facility], MR, MR THORACIC SPINE WO/W CON, 12/18/2018, 7:15. [facility], MR, MR CERVICAL SPINE WO/W CON, 12/18/2018, 7:15. FINDINGS: Image quality: Excellent. CSF spaces: Ventricles are normal in size and shape. Basal cisterns are patent. No extra-axial fluid collections. Brain: No intracranial bleeds or mass effects. [place]-white matter interface appears intact. No suspicious white matter lesions. No abnormal intracranial enhancement. Diffusion weighted images show no acute ischemic insults. It is made of mild prominence of perivascular spaces, which is best seen on series 8. Brainstem appears normal. Normal intravascular flow voids are present. Skull and face: Calvarial marrow signal is normal. Orbits appear normal. Sinuses: Sinuses and mastoids are clear. IMPRESSION: Normal MRI for age. Specifically no focal white matter lesions can be seen to suggest multiple sclerosis in this middle-aged female patient. No masses or abnormal enhancement can be seen. No findings of acute or subacute infarction can be seen. Dictated by: Sai Quinones M.D. on 12/18/2018 at 8:25 Approved by: Sai Quinones M.D. on 12/18/2018 at 8:28
== END ==
PROVIDERS: Family Provider Naturopath; PCP Family Medicine; Visit Provider Naturopath
DX: R20.2 Paresthesia of skin (principal); M47.812 Spondylosis without myelopathy or radiculopathy, cervical region; R07.9 Chest pain, unspecified; R06.00 Dyspnea, unspecified; M35.00 Sjogren syndrome, unspecified; R20.1 Hypoesthesia of skin; M62.81 Muscle weakness (generalized); R29.2 Abnormal reflex
CPT/HCPCS: 70553; 72156; 72157

== ENCOUNTER → 2018-12-25 11:50 | Outpatient (CLI) | payer OTHER, SELFPAY ==
--- NOTE | 2018-12-25 | DI.MG.S_ITS ---
BILATERAL DIGITAL SCREENING MAMMOGRAM 3D/2D WITH CAD: 12/25/2018 CLINICAL: Routine screening. Comparison is made to exams dated: 03/07/2017 mammogram, 03/17/2015 mammogram, and 06/15/2013 mammogram - [facility]. The tissue of both breasts is heterogeneously dense. This may lower the sensitivity of mammography. Current study was also evaluated with a Computer Aided Detection (CAD) system. There are benign diffuse calcifications in both breasts. There also is a benign biopsy clip in the right breast. No significant masses, calcifications, or other findings are seen in either breast. There has been no significant interval change. IMPRESSION: There is no mammographic evidence of malignancy. A 1 year screening mammogram is recommended. This exam was interpreted at Station ID: [id number]. NOTE: For mammograms, a report in lay terms will be sent to the patient. Approximately 15% of breast malignancies will not be visualized mammographically. In the management of a palpable breast mass, a negative mammogram must not discourage biopsy of a clinically suspicious lesion. Electronically Signed By: Travis sr/rahul:12/25/2018 12:35:59 copy to: DAILY CID M.D. letter sent: Normal Exam ACR BI-RADS Category 2: Benign Finding(s) 3342F
== END ==
PROVIDERS: Family Provider Naturopath; PCP Family Medicine; Referring Provider Naturopath; Visit Provider Family Medicine
DX: Z12.31 Encounter for screening mammogram for malignant neoplasm of breast (principal)
CPT/HCPCS: 77063; 77067

== ENCOUNTER → 2019-01-19 10:51 | Outpatient (CLI) | payer OTHER, SELFPAY ==
--- NOTE | 2019-01-19 15:53 | P.PFT.S_ITS ---
Pulmonary Function Test Referral & Results Date Patient Seen: 01/19/19 Requesting provider: Nelda Kathleen Results: The spirometry demonstrates an FVC of 2.95 L which is 78% of predicted. The FEV1 was measured at 2.3 L which is 81% of predicted. The FEV1/FVC ratio was 81 which is 102% of predicted. Following the administration of bronchodilator there was no appreciable change. Lung volumes show an SVC of 2.77 L which is 80% of predicted. The diffusing capacity was measured at 20.63 which is 74% of predicted. No hemoglobin value was provided, so no correction for potential anemia could be made, if appropriate. The maximum voluntary ventilation was normal Interpretation: This study demonstrates minimal reduction in FEV1 suggesting minimal obstructive lung disease. There is no evidence of benefit following bronchodilator There is also slight reduction in lung volumes suggesting minimal restrictive lung disease There is also slight reduction in diffusing capacity suggesting element of d isease at the capillary alveolar level Clinical correlation suggested
== END ==
PROVIDERS: Family Provider Naturopath; PCP Family Medicine; Visit Provider Naturopath
DX: R06.00 Dyspnea, unspecified (principal); M35.00 Sjogren syndrome, unspecified
CPT/HCPCS: 94060; 94726; 94729

== ENCOUNTER 2019-10-06 13:28 | Emergency (ER) | payer OTHER, SELFPAY ==
[2019-10-06 13:31] VITALS: BP 96/50; PULSE 92; RESP 16; TEMP 36.4; O2SAT 99; BMI 15.1
[2019-10-06 14:00] VITALS: BP 105/60; PULSE 65; O2SAT 100
--- NOTE | 2019-10-06 14:51 | ED.WEAKNESS ---
HPI - Weakness General Chief complaint: Weakness Stated complaint: weakness Time Seen by Provider: 10/06/19 14:20 Source: patient and family Mode of arrival: Wheelchair Limitations: no limitations History of Present Illness HPI Narrative: 54F nonsmoker with a very complex medical history which largely consists of poor appetite, profound fatigue, and unexplained weight loss. She's had these symptoms for quite some time and has done an impressive job of advocating for self and has had multiple self referrals to specialists including educational technology coordinator, neurology, rheumatology and Lyme disease specialists. There are multiple thinner ease her underlying diagnosis including Sjogren's, Lyme disease versus others. She has recently established with a local primary care provider in an attempt to coordinate the efforts of various specialists and 1 possible scenario that has been brought up is a consultation with [facility] which has yet to happen. Patient denies much in the way of any new symptoms but is concerned that she may be fatigued or malnourished. Complaint: generalized weakness Onset (ago): year(s) Duration: constant Location: generalized Migration: none Severity: moderate Relieving factors: none Exacerbating factors: exertion Associated symptoms: loss of appetite Related Data Home Medications Medication Instructions Recorded Confirmed No Known Home Medications 06/13/19 06/13/19 Allergies Allergy/AdvReac Type Severity Reaction Status Date / Time codeine Allergy Mild CHILDHOOD Verified 06/07/19 10:49 Penicillins Allergy Mild CHILDHOOD Verified 06/07/19 10:49 Review of Systems Constitutional Constitutional: Denies chills, Reports daytime sleepiness, Denies fatigue, Denies fever(s), Denies frequent falls, Denies lethargy and Reports weakness Eyes Eyes: Denies change in vision, Denies eye discharge, Denies irritation and Denies loss of vision ENT Ears, Nose, Mouth, and Throat: Denies change in voice, Denies dizziness, Denies neck pain, Denies sore throat and Denies throat swelling Cardiovascular Cardiovascular: Denies chest pain, Denies irregular heart rhythm, Denies lightheadedness, Denies palpitations, Denies dyspnea, Denies dyspnea on exertion and Denies orthopnea Respiratory Respiratory: Denies cough, Denies dyspnea, Denies dyspnea on exertion and Denies wheezing Gastrointestinal Gastrointestinal: Denies abdominal pain, Denies change in bowel habits, Denies diarrhea, Denies nausea and Denies vomiting Genitourinary Genitourinary: Denies hematuria, Denies flank pain, Denies urinary incontinence and Denies urinary urgency Musculoskeletal Musculoskeletal: Denies back pain, Denies muscle weakness, Denies neck pain, Denies numbness and Denies tingling Integumentary/Breasts Skin/Breast: Denies pruritus, Denies erythema, Denies rash and Denies wounds Neurologic Neurologic: Denies behavioral changes, Denies confusion, Denies dizziness, Denies frequent falls, Denies loss of vision, Denies numbness, Denies tingling and Reports weakness Psychiatric Psychiatric: Denies anxiety, Denies behavioral changes, Denies confusion, Denies depression, Denies homicidal ideation and Denies suicidal ideation Endocrine Endocrine: Denies fatigue, Denies flushing and Denies palpitations Hematologic/Lymphatic Hematologic/Lymphatic: Denies easy bruising Allergic/Immunologic Allergic/Immunologic: Denies urticaria, Denies throat swelling and Denies wheezing Patient History Medical History Anemia (Chronic ~1990) Anxiety (Chronic) Blood loss (Chronic) Bulging discs (Chronic) Chicken pox (Resolved) Finger fracture (Resolved) Headache (Chronic ~1983) Heavy menstrual period (Chronic ~1999) Hypothyroidism (Acute 02/16/17) Interstitial lung disease (Acute) Irregular menstrual cycle (Chronic ~2017) Migraines (Chronic ~1983) Mumps (Resolved) Sjogrens syndrome (Acute) Varicose veins of both legs with edema (Chronic) Surgical History History of breast biopsy (Resolved) History of cryosurgery (Resolved) Family History Brother Age: 63 High cholesterol Father Age: 84 High cholesterol Skin cancer Mother Age: 84 Hypertension Skin cancer Brother Mental health disorder Social History household members: spouse Smoking Status: Never smoker alcohol intake: current substance use type: does not use Smoking Status: Never smoker Substance Use Type: does not use Exam Narrative Exam Narrative: GENERAL: [54] year old patient appears stated age. Thin, generally weak, anxious HEAD: Atraumatic. Normocephalic. EYES: Pupils equal round and reactive. Extraocular motions intact. No scleral icterus. No injection or drainage. ENT: Nose without bleeding, purulent drainage. Throat without erythema, tonsillar hypertrophy or exudate. Airway patent. NECK: Trachea midline. Non tender CARDIOVASCULAR: Regular rate and rhythm without murmurs, gallops, or rubs. RESPIRATORY: Clear to auscultation. Breath sounds equal bilaterally. No wheezes, rales, or rhonchi. GASTROINTESTINAL: Abdomen soft, non-tender, nondistended. EXTREMITIES: No edema or joint tenderness. BACK: Nontender without deformity or crepitance. No flank tenderness. NEURO: AOx3. SKIN: No rash or erythema of visible areas Initial Vital Signs Initial Vital Signs: Vital Signs Temperature 97.5 F L 10/06/19 13:31 Pulse Rate 92 H 10/06/19 13:31 Respiratory Rate 16 10/06/19 13:31 Blood Pressure 96/50 L 10/06/19 13:31 Pulse Oximetry 99 10/06/19 13:31 Course Course Course Narrative: Patient with multiple chronic symptoms and various prior consultations presents with ongoing complaint of fatigue and poor appetite. Extensive workup is very reassuring and her exam shows little change. Reassurance given to family and encouragement to continue to pursue an underlying diagnosis. Return precautions given, questions answered to the apparent satisfaction of the family. Orders Ordered: ED Orders 10/06/19 14:50 Urine Culture Stat Urine Microscopic Stat 10/06/19 15:26 Complete Blood Count AUTO DIFF Stat Comprehensive Metabolic Panel Stat Ketones (Beta-Hydroxybutyrate) Stat Lipase Stat Magnesium Stat Partial Thromboplastin Time Stat Prothrombin Time INR Stat Discontinued Medications Sodium Chloride (Normal Saline 0.9%) 1,000 mls @ 1,000 mls/hr IV BOLUS ONE Stop: 10/06/19 16:25 Last Infusion: 10/06/19 16:45 Dose: 0 mls/hr Documented by: Admin: 10/06/19 15:33 Dose: 1,000 mls/hr Documented by: WILLIAMS Vital Signs Vital signs: Vital Signs - 8 hr 10/06/19 13:31 10/06/19 14:00 10/06/19 15:44 Temperature 97.5 F L Pulse Rate 92 H 65 68 Respiratory Rate 16 18 Blood Pressure 96/50 L Blood Pressure [Right Arm] 105/60 104/60 Pulse Oximetry 99 100 99 10/06/19 16:30 Temperature Pulse Rate 55 L Respiratory Rate 15 Blood Pressure Blood Pressure [Right Arm] 108/55 L Pulse Oximetry 100 MDM - Weakness Lab Data Result diagrams: 10/06/19 15:26 10/06/19 15:26 Labs: Lab Results 10/06/19 10/06/19 10/06/19 Range/Units 14:50 15:26 15:26 WBC 6.6 (4.5-11.0) X10^3/uL RBC 4.23 (4.0-5.2) X10^6/uL Hgb 11.7 L (12.0-16.0) g/dL Hct 35.6 L (36-46) % MCV 84.1 (80-100) fL MCH 27.7 (26-34) PG MCHC 33.0 (30-36) % RDW 17.7 H (11.6-14.8) % Plt Count 254 (150-400) X10^3/uL Neut % (Auto) 70.1 (50-75) % Lymph % (Auto) 19.8 L (25-40) % Wilkin % (Auto) 7.2 (3-14) % Eos % (Auto) 2.3 (2-4) % Baso % (Auto) 0.6 (0-2) % Neut # (Auto) 4600 (6333-8476) /uL Lymph # (Auto) 1300 (4866-1474) /uL Wilkin # (Auto) 500 (0-900) /uL Eos # (Auto) 200 (0-450) /uL Baso # (Auto) 0 (0-100) /uL PT (10.1-12.7) SECONDS INR (0.9-1.3) APTT (26.4-36.2) SECONDS Sodium (137-145) mmol/L Potassium (3.4-5.1) mmol/L Chloride (98-107) mmol/L Carbon Dioxide (22-32) mmol/L BUN (7-17) mg/dL Creatinine (0.52-1.04) mg/dL Estimated GFR (>60) mL/min BUN/Creatinine Ratio (6-22) Glucose (70-100) mg/dL Calcium (8.4-10.2) mg/dL Magnesium (1.6-2.3) mg/dL Total Bilirubin (0.2-1.3) mg/dL AST (14-36) IU/L ALT (<35) IU/L Alkaline Phosphatase (38-126) U/L Total Protein (6.3-8.2) g/dL Albumin (3.5-5.0) g/dL Globulin (1.7-4.1) g/dL Albumin/Globulin Ratio (1.0-2.8) Lipase (23-300) U/L Urine RBC None seen (0-5/HPF) Urine WBC 1-5/hpf (0-5/HPF) Urine Bacteria None seen (None) Ur Culture Indicated? Specimen cultured Ketones 2.75 H (<0.27) mmol/L 10/06/19 10/06/19 Range/Units 15:26 15:26 WBC (4.5-11.0) X10^3/uL RBC (4.0-5.2) X10^6/uL Hgb (12.0-16.0) g/dL Hct (36-46) % MCV (80-100) fL MCH (26-34) PG MCHC (30-36) % RDW (11.6-14.8) % Plt Count (150-400) X10^3/uL Neut % (Auto) (50-75) % Lymph % (Auto) (25-40) % Wilkin % (Auto) (3-14) % Eos % (Auto) (2-4) % Baso % (Auto) (0-2) % Neut # (Auto) (8089-7231) /uL Lymph # (Auto) (6471-0186) /uL Wilkin # (Auto) (0-900) /uL Eos # (Auto) (0-450) /uL Baso # (Auto) (0-100) /uL PT 14.1 H (10.1-12.7) SECONDS INR 1.2 (0.9-1.3) APTT 31 D (26.4-36.2) SECONDS Sodium 138 (137-145) mmol/L Potassium 4.1 (3.4-5.1) mmol/L Chloride 101 (98-107) mmol/L Carbon Dioxide 23 (22-32) mmol/L BUN 24 H (7-17) mg/dL Creatinine 0.80 (0.52-1.04) mg/dL Estimated GFR > 60.0 (>60) mL/min BUN/Creatinine Ratio 30.0 H (6-22) Glucose 84 (70-100) mg/dL Calcium 9.1 (8.4-10.2) mg/dL Magnesium 2.3 (1.6-2.3) mg/dL Total Bilirubin 0.3 (0.2-1.3) mg/dL AST 33 (14-36) IU/L ALT 19 (<35) IU/L Alkaline Phosphatase 63 (38-126) U/L Total Protein 6.7 (6.3-8.2) g/dL Albumin 3.9 (3.5-5.0) g/dL Globulin 2.8 (1.7-4.1) g/dL Albumin/Globulin Ratio 1.4 (1.0-2.8) Lipase 173 (23-300) U/L Urine RBC (0-5/HPF) Urine WBC (0-5/HPF) Urine Bacteria (None) Ur Culture Indicated? Ketones (<0.27) mmol/L Urine Dip Bedside Urine Glucose Negative Bedside Urine Bilirubin - Negative Bedside Urine Ketone ++ 40 Urine Specific Cuthbert 1.015 Bedside Urine Occult Blood - Negative Bedside Urine pH 6.0 Bedside Urine Protein - Negative Bedside Urine Urobilinogen - Negative Bedside Urine Nitrite - Negative Bedside Urine Leukocytes + 70 Esterase Discharge Plan Departure Patient Disposition: Home Clinical Impression: Weakness, Dehydration Fatigue Qualifiers: Fatigue type: chronic, unspecified Qualified Code(s): R53.82 - Chronic fatigue, unspecified Discharge Date/Time: 10/06/19 17:03 Instructions: DI for Dehydration -- Adult Activity Restrictions/Additional Instructions: *You have been diagnosed with [chronic fatigue and weight loss] *What to do: * continue to take medications as directed *Follow up with your primary care provider in 2-3 days, call for an appointment. Let them know you were seen in the Emergency Department and that we ask that you be seen in follow up *Return to ER if you should have any new, worsening or concerning symptoms Prescriptions: No Action No Known Home Medications RF: 0 Referrals: Denisse Cano DO [Primary Care Provider] -
[2019-10-06] MEDS: SODIUM CHLORIDE 0.9% 1,000 ML 1000 ML IV (15:33)
[2019-10-06 15:44] VITALS: BP 104/60; PULSE 68; RESP 18; O2SAT 99
[2019-10-06 15:54] LABS: Bacteria Urine None Seen; RBC Urine None Seen (0-5/HPF)
[2019-10-06 15:59] LABS: Add Manual Diff / Slide Review NO; Basophils Absolute Auto 0 /uL (0-100); Basophils Percent Auto 0.6 % (0-2); Eosinophils Absolute Auto 200 /uL (0-450); Eosinophils Percent Auto 2.3 % (2-4); Hematocrit 35.6 % (36-46); Hemoglobin 11.7 g/dL (12.0-16.0); Lymphocytes Absolute Auto 1300 /uL (1100-4500); Lymphocytes Percent Auto 19.8 % (25-40); Mean Corpuscular Hemoglobin 27.7 PG (26-34); Mean Corpuscular Volume 84.1 fL (80-100); Monocytes Absolute Auto 500 /uL (0-900); Monocytes Percent Auto 7.2 % (3-14); Neutrophils Absolute Auto 4600 /uL (1500-7000); Neutrophils Percent Auto 70.1 % (50-75); Platelet Count 254 X10^3/uL (150-400); Red Blood Cell Count 4.23 X10^6/uL (4.0-5.2); Red Cell Distribution Width 17.7 % (11.6-14.8); White Blood Cell Count 6.6 X10^3/uL (4.5-11.0)
[2019-10-06 16:04] LABS: INR 1.2 (0.9-1.3); Prothrombin Time 14.1 SECONDS (10.1-12.7)
[2019-10-06 16:07] LABS: PTT Partial Thromboplastin Tim 31 SECONDS (26.4-36.2)
[2019-10-06 16:11] LABS: Alanine Aminotransferase 19 IU/L (<35); Albumin 3.9 g/dL (3.5-5.0); Albumin Globulin Ratio 1.4 (1.0-2.8); Alkaline Phosphatase 63 U/L (38-126); Aspartate Aminotransferase 33 IU/L (14-36); Bilirubin Total 0.3 mg/dL (0.2-1.3); Blood Urea Nitrogen 24 mg/dL (7-17); Calcium 9.1 mg/dL (8.4-10.2); Carbon Dioxide 23 mmol/L (22-32); Chloride 101 mmol/L (98-107); Estimated Glomerular Filt Rate > 60.0 mL/min (>60); Globulin 2.8 g/dL (1.7-4.1); Glucose 84 mg/dL (70-100); HEMOLYSIS 23 (0-50); Lipase 173 U/L (23-300); Magnesium 2.3 mg/dL (1.6-2.3); Potassium 4.1 mmol/L (3.4-5.1); Sodium 138 mmol/L (137-145); Total Protein 6.7 g/dL (6.3-8.2)
[2019-10-06 16:16] LABS: Culture Indicated Urine Specimen Cultured; WBC Urine 1-5/HPF (0-5/HPF)
[2019-10-06 16:30] VITALS: BP 108/55; PULSE 55; RESP 15; O2SAT 100
[2019-10-06 16:56] LABS: Ketones (Beta-Hydroxybutyrate) 2.75 mmol/L (<0.27)
== END 2019-10-06 17:03 | disposition home or self-care (01) ==
PROVIDERS: Emergency Provider Emergency Medicine; Family Provider Naturopath; PCP Family Medicine
DX: R53.1 Weakness (principal); E86.0 Dehydration; R53.82 Chronic fatigue, unspecified
CPT/HCPCS: 36415; 80053; 81003; 81015; 82009; 83690; 83735; 85025; 85610; 85730; 87086; 96360; 99284

== ENCOUNTER → 2022-09-28 15:22 | Outpatient (CLI) | payer OTHER, SELFPAY ==
--- NOTE | 2022-09-28 | DI.MG.S_ITS ---
BILATERAL DIGITAL SCREENING MAMMOGRAM 3D/2D WITH CAD: 09/28/2022 CLINICAL: Routine screening. Comparison is made to exams dated: 12/25/2018 mammogram, 03/07/2017 mammogram, 12/08/2015 mammogram, and 03/17/2015 mammogram - [facility]. Both breasts are heterogeneously dense, which may obscure small masses (category c / 51-75% glandular tissue). Current study was also evaluated with a Computer Aided Detection (CAD) system. There are benign diffuse calcifications in both breasts. There also is a biopsy clip in the right breast. No significant masses, calcifications, or other findings are seen in either breast. There has been no significant interval change. IMPRESSION: BENIGN There is no mammographic evidence of malignancy. A 1 year screening mammogram is recommended. Based on the Tyrer Cuzick model (a risk assessment model) the patient's lifetime risk is 12.2% and her 10 year risk is 4.6%. According to the ACR, ACS, and NCCN guidelines, an annual breast MRI exam along with mammogram is recommended if the patient's lifetime risk is 20% or greater. This exam was interpreted at Station ID: [id number]. NOTE: For mammograms, a report in lay terms will be sent to the patient. Approximately 15% of breast malignancies will not be visualized mammographically. In the management of a palpable breast mass, a negative mammogram must not discourage biopsy of a clinically suspicious lesion. Electronically Signed By: Travis toney/rahul:09/29/2022 07:32:08 copy to: DAILY CID M.D. letter sent: Normal Exam ACR BI-RADS Category 2: Benign Finding(s) [id number]
== END ==
PROVIDERS: Family Provider Naturopath; PCP Family Medicine; Referring Provider Family Medicine; Visit Provider Family Medicine
DX: Z12.31 Encounter for screening mammogram for malignant neoplasm of breast (principal)
CPT/HCPCS: 77063; 77067

== ENCOUNTER → 2023-08-15 14:42 | Outpatient (CLI) | payer OTHER, SELFPAY ==
[2023-08-15 16:03] LABS: Add Manual Diff / Slide Review NO; Basophils Absolute Auto 0 /uL (0-100); Basophils Percent Auto 0.5 % (0-2); Eosinophils Absolute Auto 400 /uL (0-450); Eosinophils Percent Auto 5.6 % (2-4); Hematocrit 41.8 % (36-46); Hemoglobin 13.8 g/dL (12.0-16.0); Lymphocytes Absolute Auto 1500 /uL (1100-4500); Lymphocytes Percent Auto 20.4 % (25-40); Mean Corpuscular HGB Conc 33.1 % (30-36); Mean Corpuscular Volume 96.8 fL (80-100); Monocytes Absolute Auto 500 /uL (0-900); Monocytes Percent Auto 6.7 % (3-14); Neutrophils Absolute Auto 5100 /uL (1500-7000); Neutrophils Percent Auto 66.8 % (50-75); Platelet Count 267 X10^3/uL (150-400); Red Blood Cell Count 4.32 X10^6/uL (4.0-5.2); Red Cell Distribution Width 13.4 % (11.6-14.8); White Blood Cell Count 7.6 X10^3/uL (4.5-11.0)
[2023-08-15 16:25] LABS: Alanine Aminotransferase 20 IU/L (<35); Albumin 4.4 g/dL (3.5-5.0); Albumin Globulin Ratio 1.3 (1.0-2.8); Alkaline Phosphatase 85 U/L (38-126); Aspartate Aminotransferase 23 IU/L (14-36); BUN Creatinine Ratio 22.7 (6-22); Bilirubin Total 0.7 mg/dL (0.2-1.3); Blood Urea Nitrogen 17 mg/dL (7-17); Calcium 9.3 mg/dL (8.4-10.2); Carbon Dioxide 25 mmol/L (22-32); Chloride 104 mmol/L (98-107); Estimated Glomerular Filt Rate > 60 mL/min (>60); Globulin 3.4 g/dL (1.7-4.1); Glucose 90 mg/dL (70-100); HEMOLYSIS < 15 (0-50); Magnesium 2.1 mg/dL (1.6-2.3); Potassium 4.1 mmol/L (3.4-5.1); Sodium 140 mmol/L (137-145); Total Protein 7.8 g/dL (6.3-8.2)
[2023-08-15 16:57] LABS: TSH w/ Reflex to FT4 1.44 uIU/mL (0.47-4.68)
== END ==
PROVIDERS: Family Provider Naturopath; PCP Family Medicine; Referring Provider Family Medicine; Visit Provider Family Medicine
DX: E03.9 Hypothyroidism, unspecified (principal); Z51.81 Encounter for therapeutic drug level monitoring
CPT/HCPCS: 36415; 80053; 83735; 84443; 85025

== ENCOUNTER → 2023-09-13 14:01 | Outpatient (CLI) | payer OTHER, SELFPAY ==
--- NOTE | 2023-09-13 14:02 | DI.US.S_ITS ---
PROCEDURE: US PELVIC COMPLETE INDICATIONS: FOLLOW UP LEFT OVARIAN CYST 2018. HISTORY OF IUD AND ESTRADIOL USE. TECHNIQUE: Real-time scanning was performed of the pelvic organs, with image documentation. Additional endovaginal scanning was necessary due to incomplete visualization of the adnexal and endometrial structures by transabdominal scanning. COMPARISON: [facility], US, US PELVIC COMPLETE, 06/13/2019, 16:02. FINDINGS: Uterus: Uterus is anteverted and normal in size at 7.2 x 4.6 x 3.3 cm. The myometrium is homogeneous. The endometrium measures 7.7 mm combined thickness. Intrauterine device in place Ovaries: The right ovary measures 2.4 x 0.9 x 1.9 cm, with a calculated ovarian volume of 2.0 cc. Less than 12 follicles noted. Left ovary not visualized Other: No pathologic free abdominal or pelvic fluid. IMPRESSION: Nonvisualized left ovary. Normal right ovary. Intrauterine device in place Approved by: Po Xiong M.D. on 09/13/2023 at 18:14
== END ==
LOC: US 14:02
PROVIDERS: Family Provider Naturopath; PCP Family Medicine; Referring Provider Family Medicine; Visit Provider Family Medicine
DX: N83.209 Unspecified ovarian cyst, unspecified side (principal); Z97.5 Presence of (intrauterine) contraceptive device
CPT/HCPCS: 76830; 76856

== ENCOUNTER → 2023-10-20 13:04 | Outpatient (CLI) | payer OTHER, SELFPAY ==
--- NOTE | 2023-10-20 13:05 | DI.MG.S_ITS ---
BILATERAL DIGITAL SCREENING MAMMOGRAM 3D/2D WITH CAD: 10/20/2023 CLINICAL: Routine screening. Comparison is made to exams dated: 09/28/2022 mammogram, 12/25/2018 mammogram, and 03/07/2017 mammogram - [facility]. Both breasts are heterogeneously dense, which may obscure small masses (category c / 51-75% glandular tissue). Current study was also evaluated with a Computer Aided Detection (CAD) system. There is a biopsy clip in the right breast. No significant masses, calcifications, or other findings are seen in either breast. There has been no significant interval change. IMPRESSION: BENIGN There is no mammographic evidence of malignancy. A 1 year screening mammogram is recommended. Based on the Tyrer Cuzick model (a risk assessment model) the patient's lifetime risk is 12.3% and her 10 year risk is 4.9%. According to the ACR, ACS, and NCCN guidelines, an annual breast MRI exam along with mammogram is recommended if the patient's lifetime risk is 20% or greater. This exam was interpreted at Station ID: [id number]. NOTE: For mammograms, a report in lay terms will be sent to the patient. Approximately 15% of breast malignancies will not be visualized mammographically. In the management of a palpable breast mass, a negative mammogram must not discourage biopsy of a clinically suspicious lesion. Electronically Signed By: Carly Hurtado M.D., PH.D eb/penrad:10/20/2023 14:33:16 copy to: DAILY CID M.D. letter sent: Normal Exam ACR BI-RADS Category 2: Benign Finding(s) [id number]
== END ==
LOC: MAMMO 13:04
PROVIDERS: Family Provider Naturopath; PCP Family Medicine; Referring Provider Family Medicine; Visit Provider Family Medicine
DX: Z12.31 Encounter for screening mammogram for malignant neoplasm of breast (principal); R92.333 Mammographic heterogeneous density, bilateral breasts
CPT/HCPCS: 77063; 77067

== ENCOUNTER → 2024-05-16 16:14 | Outpatient (CLI) | payer OTHER, SELFPAY ==
[2024-05-16 19:54] LABS: Bilirubin Urine UA NEGATIVE (NEGATIVE); Color Urine UA YELLOW; Glucose Urine UA NEGATIVE (Negative); Ketones Urine UA NEGATIVE (NEGATIVE); Leukocyte Esterase Urine UA 3+ (NEGATIVE); Nitrite Urine UA NEGATIVE (Negative); Occult Blood Urine UA TRACE-INTACT (Negative); Protein Urine UA NEGATIVE (Negative); Specific Gravity Urine UA <=1.005 (1.000-1.035); Urobilinogen Urine UA 0.2 E.U./dL (0.2)
[2024-05-16 19:58] LABS: Appearance Urine UA SL CLOUDY; Urine Volume 10mL (spun)
[2024-05-16 20:00] LABS: RBC Urine 0-1/HPF (0-5/HPF)
[2024-05-16 20:01] LABS: Bacteria Urine Moderate (10-30); Culture Indicated Urine Specimen Cultured; Mucus Urine 1+ (Negative); Squamous Epithelial Cell Urine 1-5 /HPF (0-5/HPF); WBC Urine 10-30/HPF (0-5/HPF)
== END ==
PROVIDERS: Family Provider Naturopath; PCP Family Medicine; Visit Provider Family Medicine
DX: R30.0 Dysuria (principal)
CPT/HCPCS: 81001; 87086

== ENCOUNTER → 2024-07-03 12:02 | Outpatient (CLI) | payer OTHER, SELFPAY ==
[2024-07-03 12:15] LABS: Appearance Urine UA CLEAR; Bilirubin Urine UA NEGATIVE (NEGATIVE); Color Urine UA YELLOW; Glucose Urine UA NEGATIVE (Negative); Ketones Urine UA NEGATIVE (NEGATIVE); Leukocyte Esterase Urine UA 2+ (NEGATIVE); Nitrite Urine UA NEGATIVE (Negative); Occult Blood Urine UA NEGATIVE (Negative); Protein Urine UA NEGATIVE (Negative); Specific Gravity Urine UA <=1.005 (1.000-1.035); Urobilinogen Urine UA 0.2 E.U./dL (0.2)
[2024-07-03 12:28] LABS: Urine Volume 10mL (spun)
[2024-07-03 12:29] LABS: Bacteria Urine Few (2-10); Culture Indicated Urine Specimen Cultured; RBC Urine 0-1/HPF (0-5/HPF); Squamous Epithelial Cell Urine 1-5 /HPF (0-5/HPF); WBC Urine 5-10/HPF (0-5/HPF)
== END ==
PROVIDERS: Family Provider Naturopath; PCP Family Medicine; Referring Provider Family Medicine; Visit Provider Family Medicine
DX: R30.0 Dysuria (principal)
CPT/HCPCS: 81001; 87086

== ENCOUNTER → 2024-08-22 12:35 | Outpatient (CLI) | payer OTHER, SELFPAY ==
--- NOTE | 2024-08-22 12:36 | DI.US.S_ITS ---
PROCEDURE: US PELVIC COMPLETE INDICATIONS: hx EMS 7.7mm, reassess TECHNIQUE: Real-time scanning was performed of the pelvic organs, with image documentation. Additional endovaginal scanning was necessary due to incomplete visualization of the adnexal and endometrial structures by transabdominal scanning. COMPARISON: [facility], US, US PELVIC COMPLETE, 09/13/2023, 14:10. FINDINGS: Uterus: Uterus is anteverted and normal in size at 8.6 x 4.1 x 3.3 cm. The myometrium is heterogeneous. The endometrium measures 6 mm combined thickness. No fibroids seen. Small nabothian cysts. Ovaries: Ovaries are not seen. Other: No pathologic free abdominal or pelvic fluid. IMPRESSION: 1. Endometrium measures 6 mm. Prominent in this postmenopausal patient. -Recommend clinical correlation. Endometrium biopsy could be considered if not yet performed. Traffic Director reports trace hemorrhage on the transvaginal probe to after the exam. 2. Ovaries are not seen. We strive to produce accurate, complete, and clear reports of imaging services. To assist us in improving patient care, this report was composed using standard report templates and voice recognition software. Therefore, it may contain abnormal punctuation, insertions and/or omissions. Occasional wrong-word or sound-alike substitutions may occur. Though we review the report and make efforts to correct it, we do recommend that the report be read carefully in proper context to recognize any text inaccuracies. Dictated by: Geovanni Yang M.D. on 08/23/2024 at 0:08 Approved by: Geovanni Yang M.D. on 08/23/2024 at 0:11
== END ==
PROVIDERS: Family Provider Naturopath; PCP Family Medicine; Referring Provider Obstetrics & Gynecology; Visit Provider Obstetrics & Gynecology
DX: R93.89 Abnormal findings on diagnostic imaging of other specified body structures (principal); N85.00 Endometrial hyperplasia, unspecified
CPT/HCPCS: 76830; 76856

== ENCOUNTER → 2024-08-30 08:35 | Outpatient (CLI) | payer OTHER, SELFPAY ==
[2024-08-30 08:59] LABS: Appearance Urine UA CLEAR; Bilirubin Urine UA NEGATIVE (NEGATIVE); Color Urine UA YELLOW; Glucose Urine UA NEGATIVE (Negative); Ketones Urine UA NEGATIVE (NEGATIVE); Leukocyte Esterase Urine UA 1+ (NEGATIVE); Nitrite Urine UA NEGATIVE (Negative); Occult Blood Urine UA 2+ (Negative); Protein Urine UA NEGATIVE (Negative); Urobilinogen Urine UA 0.2 E.U./dL (0.2)
[2024-08-30 09:26] LABS: Bacteria Urine Few (2-10); RBC Urine 5-10/HPF (0-5/HPF); Urine Volume 10mL (spun); WBC Urine 1-5/HPF (0-5/HPF)
[2024-08-30 09:27] LABS: Culture Indicated Urine Specimen Cultured; Squamous Epithelial Cell Urine 1-5 /HPF (0-5/HPF)
== END ==
PROVIDERS: Family Provider Naturopath; PCP Family Medicine; Referring Provider Family Medicine; Visit Provider Family Medicine
DX: N39.0 Urinary tract infection, site not specified (principal)
CPT/HCPCS: 81001; 87086

== ENCOUNTER → 2024-09-10 14:03 | Outpatient (CLI) | payer OTHER, SELFPAY ==
--- NOTE | 2024-09-10 14:04 | DI.RAD.S_ITS ---
PROCEDURE: XR DEXA AXIAL SKELETON INDICATIONS: pt requesting screening COMPARISON: None. FINDINGS: Lumbar Spine: Bone mineral density 0.753 g/cm2, T score -2.7. Left Femoral Neck: Bone mineral density 0.522 g/cm2, T score -2.9. Left Hip: Bone mineral density 0.738 g/cm2, T score -1.7. Fracture Risk Calculation (when applicable): Not applicable. (T score greater or equal to -1.0 to: NORMAL) (T score from -1.1 to -2.4: OSTEOPENIA) (T score less than or equal to -2.5: OSTEOPOROSIS) IMPRESSION: Osteoporosis. Follow-up guidelines as follows: Osteoporosis: Consider a repeat DEXA and Vertebral Fracture Assessment (VFA) exam in 2 years or sooner if medically necessary, to reassess this patient's status. Osteopenia: Consider a repeat DEXA in 2-3 years to reassess this patient's status, or if there is a new clinical indication. Normal: Consider a repeat DEXA in 5 years or sooner, or if there is a new clinical indication. All treatment decisions require clinical judgment and consideration of individual patient factors, including patient preferences, comorbidities, previous drug use, risk factors not captured in the FRAX model (e.g., frailty, falls, vitamin D deficiency, increased bone turnover, interval significant decline in bone density ) and possible under- or over-estimation of fracture risk by FRAX. In addition, the NOF Guide recommends that FDA-approved medical therapies be considered in postmenopausal women and men age >= 50 years with a: * Hip or vertebral (clinical or morphometric) fracture * T-score of <=-2.5 at the spine or hip * Ten-year fracture probability by FRAX of >= 3% for hip fracture or >=20% for major osteoporotic fracture. Dictated by: Elpidio Kerr M.D. on 09/10/2024 at 16:28 Approved by: Elpidio Kerr M.D. on 09/10/2024 at 16:29
== END ==
PROVIDERS: Family Provider Naturopath; PCP Family Medicine; Referring Provider Family Medicine; Visit Provider Family Medicine
DX: M81.0 Age-related osteoporosis without current pathological fracture (principal); M54.9 Dorsalgia, unspecified; G89.29 Other chronic pain; Z77.120 Contact with and (suspected) exposure to mold (toxic); Z86.39 Personal history of other endocrine, nutritional and metabolic disease; E03.9 Hypothyroidism, unspecified; M35.00 Sjogren syndrome, unspecified
CPT/HCPCS: 77080

== ENCOUNTER → 2024-11-19 09:46 | Outpatient (CLI) | payer OTHER, SELFPAY ==
--- NOTE | 2024-11-19 09:47 | DI.MG.S_ITS ---
MM screening mammo BI: 11/19/2024. BI-RADS: 2 CLINICAL: 59-year old female for bilateral screening mammogram. Tyrer-Cuzick lifetime risk of 9.6%. No personal or first-degree family history of breast cancer. The patient had a prior right breast biopsy. PRIOR EXAMS 10/20/2023, 09/28/2022, 12/25/2018, 03/07/2017, 12/08/2015, 03/17/2015. MAMMOGRAPHY TECHNIQUE: 2D and 3D (tomosynthesis) digital mammographic views obtained, with additional images as needed for full coverage. Current study was also evaluated with a Computer Aided Detection (CAD) system. DENSITY C. The breasts are heterogeneously dense, which may obscure small masses. MAMMOGRAPHY FINDINGS Right: Biopsy marker present on the right. Benign-appearing calcification noted on the right. There are no suspicious masses, calcifications, or other findings in the breast. No significant change from comparison. Left: Benign-appearing calcification noted on the left. There are no suspicious masses, calcifications, or other findings in the breast. No significant change from comparison. IMPRESSION: * No evidence of malignancy with benign findings. RECOMMENDATIONS Bilateral * Annual screening mammography. OVERALL ASSESSMENT CATEGORY BI-RADS-2: Benign. The [employer] recommends annual screening mammography beginning at age 40 for women with average risk of breast cancer. ELECTRONICALLY SIGNED: Aide Shore M.D. on 11/19/2024 at 03:32:30 PM PT Interpreting Station ID: [id number]
[2024-11-19 10:21] LABS: Appearance Urine UA CLEAR; Bilirubin Urine UA NEGATIVE (NEGATIVE); Color Urine UA YELLOW; Glucose Urine UA NEGATIVE (Negative); Ketones Urine UA NEGATIVE (NEGATIVE); Leukocyte Esterase Urine UA 3+ (NEGATIVE); Nitrite Urine UA NEGATIVE (Negative); Occult Blood Urine UA TRACE-INTACT (Negative); Protein Urine UA NEGATIVE (Negative); Urobilinogen Urine UA 0.2 E.U./dL (0.2)
[2024-11-19 10:22] LABS: Urine Volume 10mL (spun)
[2024-11-19 10:26] LABS: Bacteria Urine None Seen; Culture Indicated Urine Specimen Cultured; RBC Urine None Seen (0-5/HPF); Squamous Epithelial Cell Urine 5-10 /HPF (0-5/HPF); WBC Urine 5-10/HPF (0-5/HPF)
[2024-11-19 10:44] LABS: Add Manual Diff / Slide Review NO; Basophils Absolute Auto 100 /uL (0-100); Basophils Percent Auto 2.2 % (0-2); Eosinophils Absolute Auto 200 /uL (0-450); Eosinophils Percent Auto 3.2 % (2-4); Hemoglobin 14.1 g/dL (12.0-16.0); Lymphocytes Absolute Auto 1000 /uL (1100-4500); Lymphocytes Percent Auto 16.6 % (25-40); Mean Corpuscular HGB Conc 33.5 % (30-36); Mean Corpuscular Hemoglobin 31.9 PG (26-34); Mean Corpuscular Volume 95.1 fL (80-100); Monocytes Absolute Auto 500 /uL (0-900); Monocytes Percent Auto 7.2 % (3-14); Neutrophils Absolute Auto 4500 /uL (1500-7000); Neutrophils Percent Auto 70.8 % (50-75); Platelet Count 264 X10^3/uL (150-400); Red Blood Cell Count 4.42 X10^6/uL (4.0-5.2); Red Cell Distribution Width 14.2 % (11.6-14.8); White Blood Cell Count 6.3 X10^3/uL (4.5-11.0)
[2024-11-19 11:12] LABS: Alanine Aminotransferase 48 IU/L (<35); Albumin 4.6 g/dL (3.5-5.0); Albumin Globulin Ratio 1.6 (1.0-2.8); Alkaline Phosphatase 94 U/L (38-126); Aspartate Aminotransferase 34 IU/L (14-36); BUN Creatinine Ratio 21.1 (6-22); Blood Urea Nitrogen 16 mg/dL (7-17); Calcium 9.1 mg/dL (8.4-10.2); Carbon Dioxide 24 mmol/L (22-32); Chloride 106 mmol/L (98-107); Cholesterol 225 mg/dL (140-199); Estimated Glomerular Filt Rate > 60 mL/min (>60); Globulin 2.9 g/dL (1.7-4.1); Glucose 87 mg/dL (80-110); HDL Cholesterol 63 mg/dL (40-60); HEMOLYSIS 41 (0-50); LDL Cholesterol Calculated 148 mg/dL (<100); Potassium 4.5 mmol/L (3.4-5.1); Sodium 138 mmol/L (137-145); Total Protein 7.5 g/dL (6.3-8.2); Triglycerides 71 mg/dL (35-150)
[2024-11-19 11:28] LABS: Vitamin D 25 Hydroxy (D3) 80.2 ng/mL (30.0-100.0)
== END ==
PROVIDERS: Family Provider Naturopath; PCP Family Medicine; Referring Provider Family Medicine; Visit Provider Family Medicine
DX: Z12.31 Encounter for screening mammogram for malignant neoplasm of breast (principal); R92.333 Mammographic heterogeneous density, bilateral breasts; Z77.120 Contact with and (suspected) exposure to mold (toxic); Z13.220 Encounter for screening for lipoid disorders; E78.00 Pure hypercholesterolemia, unspecified; Z87.440 Personal history of urinary (tract) infections; Z82.62 Family history of osteoporosis; M81.0 Age-related osteoporosis without current pathological fracture; Z79.899 Other long term (current) drug therapy
CPT/HCPCS: 36415; 77063; 77067; 80053; 80061; 81001; 82306; 85025; 87077; 87086

== ENCOUNTER → 2025-01-02 14:06 | Outpatient (CLI) | payer OTHER, SELFPAY | PROVIDERS: Family Provider Naturopath; PCP Family Medicine; Referring Provider Family Medicine; Visit Provider Family Medicine | DX: Z13.89 Encounter for screening for other disorder (principal) | CPT/HCPCS: 36415 ==